=== PATIENT | female | born 1935 | race Caucasian/White ===

== ENCOUNTER 2018-12-05 06:43 | Outpatient (CLI) | payer MEDICARE, SELFPAY ==
[2018-11-25 11:07] VITALS: BMI 24.7
--- NOTE | 2018-11-25 12:18 | RAD_ITS ---
STUDY: X-RAY CHEST REASON FOR EXAM: Female, 83 years old. Precath TECHNIQUE: Frontal and lateral views of the chest. COMPARISON: None. FINDINGS: Calcified granuloma in the right midlung. Pulmonary hyperinflation without acute alveolar disease. There is no demonstrated pleural abnormality. Normal size heart. Normal mediastinum and ridge. Normal visualized pulmonary arteries. Normal visualized aortic arch and descending thoracic aorta. There are diffuse degenerative changes of the visualized thoracic spine. Normal visualized ribs, clavicles, and shoulders. There is no demonstrated abnormality of the visualized soft tissue structures of the upper abdomen. RAD/Chest PA and Lateral IMPRESSION: Pulmonary hyperinflation without acute alveolar disease. Electronically Signed: Jose Carlos Castillo MD at 9:40 EST Tel , Service support ,
[2018-11-25 13:05] LABS: Absolute Lymphocyte Count 1.74 X10^3/ul (0.83-4.51); Absolute Neutrophil Count 3.1 X10^3/uL (2.0-7.7); Basophil# 0.03 X10^3/uL; Basophil% 0.5 % (0-1); Eosinophil# 0.37 X10^3/uL; Eosinophils% 6.5 % (0-5); Hematocrit 43.1 % (37-47); Hemoglobin 13.9 g/dl (12.0-15.0); Lymphocyte # 1.74 X10^3/ul (4.0); Lymphocyte % 30.4 % (19-41); Mean Corp Hgb Conc 32.3 g/gl (32-36); Mean Corpuscular Hgb 31.5 pg (27.0-32.0); Mean Corpuscular Volume 97.7 fL (81-99); Monocyte# 0.49 X10^3/uL; Monocyte% 8.6 % (0-10); Neutrophil # 3.07 X10^3/uL (2.7-7.7); Neutrophil % 53.7 % (47-70); Platelet Count 168 K/mm3 (150-450); RBC Distribution Width CV 13.1 % (11.6-14.6); RBC Distribution Width SD 46.9 fl (35.1-43.9); Red Blood Count 4.41 M/mm3 (4.2-5.4); White Blood Count 5.7 K/mm3 (4.4-11.0)
[2018-11-25 13:06] LABS: POSITIVE COUNT NO; POSITIVE DIFFERENTIAL NO; POSITIVE MORPHOLOGY NO
[2018-11-25 13:13] LABS: Prothrombin Time (Protime)PT. 13.3 SECONDS (11.7-14.9)
[2018-11-25 13:27] LABS: Anion Gap 7 (5-15); BUN 20 mg/dL (7-18); BUN/Creat Ratio 22.5 RATIO (10-20); Chloride 106 mmol/L (98-107); Creatinine, Serum 0.89 mg/dL (0.55-1.02); EST Glomerular Filtration Rate 65 mL/min (>60); Est Glom Filt Rate - Afr Amer 78 mL/min (>60); Glucose 94 mg/dL (74-106); Potassium 4.1 mmol/L (3.5-5.1); Sodium Level 143 mmol/L (136-145)
[2018-12-04 10:09] VITALS: BMI 24.7
--- NOTE | 2018-12-05 08:03 | ECHOTEE_ITS ---
Reason For Study: AI, MR, Chest Pain Medication MIHAI probe passed without difficulty. No complications were noted. Cetacaine Topical [place] given X2 orally. Performed a rapid injection of agitated mix of 9 cc saline and 1cc air to assess for atrial septal defect. Versed 2 mg given slow IVP. Fentanyl 25 mcg given slow IVP. [id number] gargled and swallowed. Left Ventricle Normal size and thickness. The estimated ejection fraction is 65 %. No regional wall motion abnormalities noted. Right Ventricle Normal size and thickness. The right ventricular wall motion is normal. Atria Normal atrial septum. Bubble contrast study negative for right to left interatrial shunt. Normal left atrium. No thrombus is detected in the left atrial appendage. Normal right atrium. Mitral Valve The mitral valve is structurally normal. No prolapse or stenosis seen. Mild (1+) mitral valve insufficiency. Tricuspid Valve Normal tricuspid valve. Mild to moderate (1-2+) tricuspid valve insufficiency. Right ventricular systolic pressure estimated to be 41 mmHg. Mild pulmonary hypertension. Aortic Valve Trisinus/trileaflet aortic valve. Mild diffuse aortic valve thickening. Mild-Moderate (1-2+) eccentric aortic valve insufficiency. Pulmonic Valve Normal pulmonic valve. Vessels Normal aortic root. Mild atherosclerosis of the aortic arch. The pulmonary artery is normal size. Pulmonary venous flow normal. Doppler Measurements & Calculations TR max rinku: 299.5 cm/sec Interpretation Summary The estimated ejection fraction is 65 %. No thrombus is detected in the left atrial appendage. Bubble contrast study negative for right to left interatrial shunt. Mild (1+) mitral valve insufficiency. Mild to moderate (1-2+) tricuspid valve insufficiency. Right ventricular systolic pressure estimated to be 41 mmHg. Mild pulmonary hypertension. Mild-Moderate (1-2+) eccentric aortic valve insufficiency. Ordering Physician: Amos Parada Referring Physician: Dustin Sanchez Performed By: Juana Silverman, RDCS, RVT
--- NOTE | 2018-12-05 09:41 | CL.D_ITS ---
Patient Name: ARACELI RUBALCAVA Study Date: 12/05/2018 Performing: Amos Parada MD Ht: 62.99 inches 160 cm : 1935 Wt: 141.1 lbs 64 kg Age: 83 Gender: female BSA: 1.67 PROCEDURE(S) PERFORMED HI81-FCZ/LHC/COR/LV DC11-AO ROOT ANGIO WITH HEART CATH CLINICAL PROFILE AND INDICATIONS Indications: Suspected CAD, Valvular Disease Heart Failure: None Stress/Imaging Stress Test w/SPECT MPI: Yes Result: NegativeStress Test with SPECT MPI: Negative Angina Classification Anginal Classification w/in 2 Weeks: No symptoms CAD Presentations: No Sxs, no angina. Comorbidities/Risk Factors: Hypertension Dyslipidemia CONCLUSIONS Normal LV size, wall motion,and systolic function Perserved Left Ventricular systolic function with normal EDP Non obstructive coronary arteries The patient has pulmonary hypertension which is mild. Right heart pressures - mildly elevated RECOMMENDATIONS Management as per referring [employer]st No indication for AVR at this time. Mild to at most moderate aortic insufficiency by aortogram and T EE. DESCRIPTION OF PROCEDURE The patient arrived to the procedure lab. The risks and benefits of the procedure as well as a full d escription of our services here and current unavailability of surgical backup were fully explained to the patient and/or their significant other prior to the catheterization. The Timeout was completed, verifying the correct patient and procedure. The patient's procedural site was prepped and draped in the usual fashion. Local anesthetic was given subcutaneously to right groin region with Lidocaine 2%. Using a modified Seldinger technique, arterial access was obtained via the right femoral artery, a 4 Fr sheath was inserted Venous access was obtained via the right femoral vein, a 7Fr sheath was insert ed. A 7Fr thermal dilution catheter was inserted and right heart pressures were recorded, it was then advanced to PA position for cardiac outputs. Thermal dilution cardiac outputs were then recorded. O2 saturations were then obtained. The Thermal dilution catheter was then removed. Left Ventriculography was performed in MOYA projection using a 4 Fr. Pigtail catheter. LV to AO pullback pr essures were then recorded. Simultaneous pressures were then recorded. Left Coronary Artery selective angiography was performed in multiple views using a 4 Fr. JL5 catheter. Right Coronary Artery select vanessa angiography was then performed in multiple views using a 4 Fr. 3DRC catheter.The arterial sheath was pulled and manual compression applied until hemostasis is achieved. CORONARY ANGIOGRAPHY DOMINANCE: Right Dominant LEFT HEART ASSESSMENT Left Ventricular Ejection Fraction: by LV Gram 65 % Normal LV wall motion Normal Left Ventricular systolic function LVEDP: 8 mmHg Normal Left Ventricular End Diastolic Pressure RIGHT HEART ASSESSMENT Thermal CO: 4.84 Thermal CI: 2.9 Salena CO: 4.05 Salena CI: 2.43 PW: 15 PA: 35 23 RV: 39/1 9 RA: 07/04 5 PVR: 132 Aortic Valve Area: 2.84 Aortic Valve Index: 1.7 Aortic Valve Mean Gradient: 10.6 Right Heart pressures - elevated Pulmonary Hypertension Mild LEFT MAIN: Angiographically normal LEFT ANTERIOR DECENDING ARTERY: Angiographically normal CIRCUMFLEX ARTERY: Angiographically normal RIGHT CORONARY ARTERY: MID RCA: Mild luminal irregularities less than 30% VALVE FINDINGS: Aortic Valve Insufficiency: Grade 1 COMPLICATIONS No Complications PROCEDURE MEDICATIONS Oxygen: 2 L/min via nasal cannula Oxygen: 0 L/min via nasal cannula Oxygen: 2 L/min via nasal cannula Zofran 2 mg IV 12/05/2018 09:05:02 SUMMARY OF HEMODYNAMIC DATA Time AIR REST ECG 07:09:56 RA 07/04 (5) SV 09:12:43 RV 39/1, 9 09:13:04 PA 35 (23) PA 09:16:17 PW (15) PV 09:16:27 LV 141/-15, 10 09:20:28 LV 141/-14, 8 09:20:34 LV 135/-12, 9 09:20:57 PW (14) 09:20:57 LV 125/-1, 13 09:21:38 RV 39/0, 7 09:21:38 LV 137/-11, 8 09:22:03 RV 35/-1, 7 09:22:03 LV 147/-10, 21 09:23:19 LV 148/-12, 13 09:23:25 LVp 150/-11, 13 09:23:30 AOp 141/66 (96) 09:23:35 Valve Area (c P-P/ms Time AIR REST Aortic 2.85 10.6 mn/164 ms9.0 pk/164 ms 09:23:30 Type SV CO (l/m) CI (l/m/ HR Time AIR REST Thermal 76.80 4.84 2.90 63 07:09:56 Salena 64.30 4.05 2.43 63 07:09:56 Label % O2 Pres/Loc Time AIR REST AO 94 PV 09:30:12 PA 65 PA 09:30:19 Signed By Amos Parada MD On 12/05/2018 09:38:47 Amos Parada MD
[2018-12-08 11:11] LABS: Base Excess 0 mmol/L (-2 to +2); Bicarbonate 25.9 mmol/L (22-26); Blood Gas Specimen Type ART; PO2 75 mmHG (75-100); SO2 94 % (95-99); Total Carbon Dioxide 27 mmol/L; pCO2 48.5 mmHg (35-45); pH 7.34 (7.35-7.45)
[2018-12-08 11:11] LABS: Blood Gas Specimen Type VEN; VBG BASE EXCESS 1 mmol/L (-1.0-3.5); VBG Bicarbonate 27 mmol/L (22-26); VBG Oxygen Content 29 mmol/L (23-33); VBG PO2 37 mmHg (25-40); VBG SO2 65 % (50-70); VBG pCO2 53.1 mmHg (41-51); VBG pH 7.32 (7.32-7.42)
[2018-12-08 11:11] LABS: Blood Gas Specimen Type VEN; VBG BASE EXCESS 2 mmol/L (-1.0-3.5); VBG Bicarbonate 27 mmol/L (22-26); VBG Oxygen Content 29 mmol/L (23-33); VBG PO2 39 mmHg (25-40); VBG SO2 70 % (50-70); VBG pCO2 49.9 mmHg (41-51); VBG pH 7.35 (7.32-7.42)
== END 2018-12-05 14:00 | disposition home or self-care (01) ==
LOC: CVS 06:44
PROVIDERS: Family Provider Preventive Medicine Occupational Medicine; PCP Preventive Medicine Occupational Medicine; Referring Provider Internal Medicine Cardiovascular Disease; Visit Provider Internal Medicine Cardiovascular Disease
DX: I35.1 Nonrheumatic aortic (valve) insufficiency (principal); I34.0 Nonrheumatic mitral (valve) insufficiency; I37.1 Nonrheumatic pulmonary valve insufficiency
CPT/HCPCS: 36415; 71046; 80048; 82803; 85025; 85610; 93312; 93320; 93325; 93460; 93567; J7040; Q9967; A4216; C1751; C1769; C1894; J2405

== ENCOUNTER → 2019-01-17 07:44 | Outpatient (CLI) | payer MEDICARE, SELFPAY ==
[2018-12-04 10:09] VITALS: BMI 24.7
[2019-01-17 09:48] LABS: AST(SGOT) 25 U/L (15-37); Alanine Aminotransfer ALT/SGPT 25 U/L (13-56); Albumin, Serum 3.5 g/dL (3.2-5.0); Alkaline Phosphatase 65 U/L (45-117); Anion Gap 7 (5-15); BUN 20 mg/dL (7-18); BUN/Creat Ratio 23.1 RATIO (10-20); Bilirubin, Direct 0.27 mg/dL (0.00-0.30); Calcium,Total 8.5 mg/dL (8.5-10.1); Chloride 108 mmol/L (98-107); Cholesterol 115 mg/dL (200); Creatinine, Serum 0.87 mg/dL (0.55-1.02); EST Glomerular Filtration Rate 67 mL/min (>60); Est Glom Filt Rate - Afr Amer 80 mL/min (>60); Globulin 3.2 g/dL (2.2-4.2); Glucose 96 mg/dL (74-106); High Density Lipoprotein 67 mg/dL; Potassium 3.9 mmol/L (3.5-5.1); Protein, Total 6.7 g/dL (6.4-8.2); Sodium Level 144 mmol/L (136-145); Triglycerides 69 mg/dL; Very Low Density Lipoprotein 14 mg/dL (5-40)
[2019-01-19 09:45] LABS: Vitamin B12 388 pg/mL (211-911)
== END ==
PROVIDERS: Family Provider Preventive Medicine Occupational Medicine; PCP Preventive Medicine Occupational Medicine; Referring Provider Internal Medicine Cardiovascular Disease; Visit Provider Internal Medicine Cardiovascular Disease
DX: I10 Essential (primary) hypertension (principal); E03.9 Hypothyroidism, unspecified; G30.1 Alzheimer's disease with late onset; R07.9 Chest pain, unspecified; I35.1 Nonrheumatic aortic (valve) insufficiency
CPT/HCPCS: 36415; 80048; 80061; 80076; 82607; 82746; 84443

== ENCOUNTER → 2019-07-21 07:46 | Outpatient (CLI) | payer MEDICARE, SELFPAY ==
[2019-03-19 09:58] VITALS: BMI 23.3
[2019-07-21 08:59] LABS: AST(SGOT) 19 U/L (15-37); Alanine Aminotransfer ALT/SGPT 18 U/L (13-56); Albumin, Serum 3.8 g/dL (3.2-5.0); Alkaline Phosphatase 75 U/L (45-117); Bilirubin, Direct 0.23 mg/dL (0.00-0.30); Cholesterol 195 mg/dL (200); Globulin 3.5 g/dL (2.2-4.2); High Density Lipoprotein 71 mg/dL; Protein, Total 7.3 g/dL (6.4-8.2); Triglycerides 87 mg/dL; Very Low Density Lipoprotein 17 mg/dL (5-40)
== END ==
PROVIDERS: Family Provider Preventive Medicine Occupational Medicine; PCP Preventive Medicine Occupational Medicine; Referring Provider Internal Medicine Cardiovascular Disease; Visit Provider Internal Medicine Cardiovascular Disease
DX: I25.10 Atherosclerotic heart disease of native coronary artery without angina pectoris (principal)
CPT/HCPCS: 36415; 80061; 80076

== ENCOUNTER → 2019-10-16 10:51 | Outpatient (CLI) | payer MEDICARE, SELFPAY ==
[2019-10-01 09:19] VITALS: BMI 24.4
--- NOTE | 2019-10-16 10:52 | ECHOD_ITS ---
Reason For Study: PHTN Procedure This was a 2D Doppler, Color Flow transthoracic echocardiogram. Exam performed in department. Left Ventricle Normal size and thickness. The estimated ejection fraction is 65 %. Stage 1 diastolic dysfunction. No regional wall motion abnormalities noted. Right Ventricle Normal size and thickness. Normal systolic function. Atria Normal left atrium. Normal right atrium. Normal atrial septum. Mitral Valve The mitral valve is structurally normal. No prolapse or stenosis seen. Trivial mitral valve insufficiency. Tricuspid Valve Normal tricuspid valve. Mild to moderate (1-2+) tricuspid valve insufficiency. Right ventricular systolic pressure estimated to be 28 mmHg. Aortic Valve Trisinus/trileaflet aortic valve. Mild diffuse aortic valve thickening. Trivial aortic valve insufficiency. Pulmonic Valve Normal pulmonic valve. Trivial pulmonic valve insufficiency. Great Vessels Normal aortic root. Normal arch. Normal inferior vena cava. Inferior vena cava collapse with sniff. Pericardium/Pleural No pericardial effusion. MMode/2D Measurements & Calculations LVIDd: 4.5 cm IVSd: 0.93 cm LA dimension: 3.1 cm LVIDs: 2.5 cm LVPWd: 0.98 cm RVDd: 3.3 cm FS: 45.3 % LAV(MOD-bp): 33.3 ml LA A4 area: 14.7 cm2 RA A4 area: 12.4 cm2 LAV(MOD-sp2): 29.0 ml LAV(MOD-sp4): 36.9 ml Time Measurements MV dec time: 0.27 sec Doppler Measurements & Calculations MV E max betito: 60.9 cm/sec Lat Peak E' Betito: 5.4 cm/sec Med Peak E' Betito: 4.2 cm/sec MV A max betito: 82.5 cm/sec E/E' lat: 11.4 E/E' med: 14.5 MV E/A: 0.74 MV V2 max: 110.2 cm/sec MV P1/2t max betito: 77.0 cm/sec Ao V2 max: 145.6 cm/sec MV max P.9 mmHg MV P1/2t: 87.5 msec Ao max P.5 mmHg MV V2 mean: 49.3 cm/sec Ao V2 mean: 87.3 cm/sec MV mean P.2 mmHg MV dec slope: 257.9 cm/sec2 Ao mean P.6 mmHg MV V2 VTI: 29.3 cm MVA(P1/2t): 2.5 cm2 Ao V2 VTI: 27.9 cm AI max betito: 456.4 cm/sec LV V1 max: 124.6 cm/sec MR max betito: 501.3 cm/sec AI max P.4 mmHg LV V1 max P.2 mmHg MR max P.5 mmHg AI dec slope: 184.0 cm/sec2 LV V1 mean P.6 mmHg MR mean betito: 395.5 cm/sec AI P1/2t: 726.7 msec LV V1 mean: 71.1 cm/sec MR mean P.2 mmHg LV V1 VTI: 23.7 cm MR VTI: 166.2 cm PA V2 max: 89.6 cm/sec TR max betito: 240.1 cm/sec TR max P.1 mmHg Interpretation Summary The estimated ejection fraction is 65 %. Stage 1 diastolic dysfunction. Trivial mitral valve insufficiency. Mild to moderate (1-2+) tricuspid valve insufficiency. Right ventricular systolic pressure estimated to be 28 mmHg. Trivial aortic valve insufficiency. Compared to echo report dated 12/05/2018, LV function has remained the same, and RVSP has improved from 41 to 28 mm Hg. Ordering Physician: Amos Parada Referring Physician: Amos Parada Performed By: Zac Singh RCS
== END ==
PROVIDERS: Family Provider Preventive Medicine Occupational Medicine; PCP Preventive Medicine Occupational Medicine; Referring Provider Internal Medicine Cardiovascular Disease; Visit Provider Internal Medicine Cardiovascular Disease
DX: I27.20 Pulmonary hypertension, unspecified (principal)
CPT/HCPCS: 93306

== ENCOUNTER → 2022-04-25 | Outpatient (CLI) | payer MEDICARE, SELFPAY ==
[2022-04-25 11:33] LABS: Color, Urine Yellow (Yellow); Glucose, Dipstick Normal (Normal); Ketone-Dipstick Negative (Negative); Leukocyte Esterase-Dipstick 100 /ul (Negative); Nitrite-Dipstick Negative (Negative); Occult Blood-Urine Negative /ul (Negative); Protein-Dipstick 15 mg/dl (Negative); Specific Gravity, Urine 1.015 (1.002-1.030); Urine Bilirubin Dipstick Negative (Negative); Urine Clarity Sl. Cloudy (Clear); Urine Urobilinogen Normal (Normal)
== END | disposition home or self-care (01) ==
LOC: LAB 09:31
PROVIDERS: PCP Preventive Medicine Occupational Medicine; Visit Provider Preventive Medicine Occupational Medicine
DX: R39.9 Unspecified symptoms and signs involving the genitourinary system (principal)
CPT/HCPCS: 81002; 87086; 87088

== ENCOUNTER → 2023-04-23 | Outpatient (CLI) | payer MEDICARE, SELFPAY ==
--- NOTE | 2023-04-23 13:53 | ECHOD_ITS ---
Reason For Study: Murmur Procedure This was a 2D Doppler, Color Flow transthoracic echocardiogram. Exam performed in department. Left Ventricle Normal LV size. Left ventricular systolic function is normal. The estimated ejection fraction is 60 %. Stage 1 diastolic dysfunction. No regional wall motion abnormalities noted. Right Ventricle Normal RV size. Atria Normal left atrium. Normal right atrium. Mitral Valve Normal mitral valve. Tricuspid Valve Normal tricuspid valve. Mild (1+) tricuspid valve insufficiency. Pulmonary artery systolic pressure is 32 mmHg. Aortic Valve Trisinus/trileaflet aortic valve. Mild (1+) aortic valve insufficiency. Pulmonic Valve Normal pulmonic valve. Great Vessels Normal aortic root. The pulmonary artery is normal size. Normal inferior vena cava. Pericardium/Pleural No pericardial effusion. MMode/2D Measurements & Calculations LVIDd: 4.9 cm IVSd: 0.86 cm LA dimension: 2.8 cm LVIDs: 3.1 cm LVPWd: 0.80 cm RVDd: 3.0 cm FS: 38.2 % LAV(MOD-bp): 43.0 ml LA A4 area: 17.2 cm2 RA A4 area: 13.9 cm2 LAV(MOD-bp) Indexed: 24.6 ml/m2 LAV(MOD-sp2): 40.0 ml LAV(MOD-sp4): 45.6 ml Time Measurements MV dec time: 0.18 sec Doppler Measurements & Calculations MV E max betito: 56.0 cm/sec Lat Peak E' Betito: 6.4 cm/sec Med Peak E' Betito: 5.6 cm/sec MV A max betito: 76.7 cm/sec E/E' lat: 8.7 E/E' med: 10.0 MV E/A: 0.73 MV V2 max: 92.6 cm/sec MV P1/2t max betito: 58.2 cm/sec Ao V2 max: 131.7 cm/sec MV max P.4 mmHg MV P1/2t: 59.6 msec Ao max P.0 mmHg MV V2 mean: 39.8 cm/sec MV dec slope: 285.7 cm/sec2 Ao V2 mean: 84.5 cm/sec MV mean P.79 mmHg MVA(P1/2t): 3.7 cm2 Ao mean P.3 mmHg MV V2 VTI: 26.2 cm Ao V2 VTI: 28.0 cm AV (velocity ratio): 0.78 AI max betito: 467.8 cm/sec LV V1 max: 100.8 cm/sec MR max betito: 424.4 cm/sec AI max P.5 mmHg LV V1 max P.1 mmHg MR max P.1 mmHg LV V1 mean P.1 mmHg AI dec slope: 202.5 cm/sec2 LV V1 mean: 66.3 cm/sec AI P1/2t: 676.7 msec LV V1 VTI: 21.8 cm PA V2 max: 94.4 cm/sec TR max betito: 266.3 cm/sec PA V2 mean: 67.1 cm/sec PI dec slope: 179.3 cm/sec2 TR max P.4 mmHg ECHO/Echo Complete Interpretation Summary Normal LV size. Left ventricular systolic function is normal. The estimated ejection fraction is 60 %. Stage 1 diastolic dysfunction. Mild (1+) aortic valve insufficiency. Pulmonary artery systolic pressure is 32 mmHg. Ordering Physician: Sreekanth Mckinnon Referring Physician: Dustin Sanchez Performed By: Zac Singh RCS
== END | disposition home or self-care (01) ==
LOC: CVS 13:46
PROVIDERS: PCP Preventive Medicine Occupational Medicine; Referring Provider Internal Medicine Cardiovascular Disease; Visit Provider Internal Medicine Cardiovascular Disease
DX: I25.10 Atherosclerotic heart disease of native coronary artery without angina pectoris (principal)
CPT/HCPCS: 93306